=== PATIENT | male | born 1970 | race Caucasian/White ===

== ENCOUNTER 2017-01-17 12:18 | Emergency (ER) | payer BC ==
[~2017-01-17] VITALS: Ht 177.8 cm; Wt 111.7 kg
[2017-01-17 12:24] VITALS: Ht 177.8 cm; Wt 111.7 kg
[2017-01-17] MEDS ORDERED: OPTIRAY 320 IV PRN (13:30)
[2017-01-17 13:58] LABS: BASO % 0.3 %; BASO ABS # 0.02 K/uL (0-0.2); COMPLETE YES; EOS % 2.3 %; IG% 0.3 %; LYMPH % 19.6 %; LYMPH ABS # 1.56 K/uL (1.2-3.4); MEAN CORPUSCULAR HEMOGLOBIN 30.9 pg (25-34); MEAN CORPUSCULAR HGB CONC 33.6 g/dl (32-36); MEAN PLATELET VOLUME 10.5 fL (7.4-10.4); MONO % 11.4 %; NEUT % 66.1 %; PLATELET COUNT 320 K/uL (130-400); RED BLOOD COUNT 4.89 M/uL (4.7-6.1); WHITE BLOOD COUNT 7.95 K/uL (4.8-10.8)
[2017-01-17] MEDS ORDERED: ROSU5TAB PO (14:06)
[2017-01-17] MEDS ORDERED: CITA10TA4 PO (14:06)
[2017-01-17] MEDS ORDERED: LISI-787 PO (14:06)
[2017-01-17 14:25] LABS: BUN/CREATININE RATIO 13.4 (10-20); CALCIUM 8.9 mg/dl (8.5-10.1); CREATININE 0.92 mg/dl (0.60-1.40)
[2017-01-17] MEDS ORDERED: MoRPHine SULFATE 4 MG/ML 1 ML CARP\\VIAL IV STA ×2 (14:26→17:01)
--- NOTE | 2017-01-17 15:23 | DIAGNOSTIC IMAGING REPORT ---
CT PELVIS W/IV CONT ONLY (CT) CT DOSE: 707.50 mGy.cm CLINICAL HISTORY: Rectal pain TECHNIQUE: The patient was scanned in a dynamic helical fashion during intravenous administration of 93 cc Optiray 320. COMPARISON STUDY: None. FINDINGS: There is no pathologic bowel dilatation. There is no pathologic adenopathy. No pelvic masses are visualized. There is a 20 x 12 by 12 mm fluid collection at the posterior aspect of the lower rectum/anus. This could represent a perianal cyst or abscess. Correlation with clinical findings is advocated. No bony abnormalities are visualized. IMPRESSION: 20 x 12 x 12 mm fluid collection at the posterior aspect of the lower rectum/anus. This could represent either a perianal cyst or abscess. Clinical correlation is advocated Electronically signed by: Sunil Mendez M.D. 01/17/2017 3:21 PM Dictated Date/Time: 01/17/2017 3:14 PM
--- NOTE | 2017-01-17 16:13 | EMERGENCY ROOM VISIT NOTE ---
History Report prepared by Julianna: Ashley Mora Under the Supervision of: Dr. Ashish Scherer D.O. First contact with patient: 13:23 Chief Complaint: RECTAL PAIN Stated Complaint: RECTAL PAIN Nursing Triage Summary: Patient sent from [facility] for evaluation of ? ivy-rectal abscess. Patient reports rectal pain and "a felt a lump" last week. Hx of hemorrhoids. History of Present Illness The patient is a 46 year old male who presents to the Emergency Room with complaints of persistent rectal pain that began one week ago. He currently rates his discomfort as a 6/10 in severity. The patient states that he has a history of hemorrhoids. He states that last week he started noticed rectal pain and went to [facility] for further evaluation. The patient states that while there he had an internal and external rectal exam that revealed a possible perirectal abscess. He states that the doctor referred him to the emergency department for further work up. The patient denies any rectal bleeding. He denies any nausea, vomiting, or diarrhea. Source of History: patient Onset: one week ago Position: other (rectal) Symptom Intensity: 6/10 Timing: other (persistent) Associated Symptoms: No diarrhea, No nausea, No vomiting Review of Systems See HPI for pertinent positives & negatives. A total of 10 systems reviewed and were otherwise negative. Past Medical & Surgical Medical Problems: (1) Hemorrhoid (2) High cholesterol (3) Hypertension Family History Heart disease Hypertension Social History Smoking Status: Never Smoker Alcohol Use: none Marital Status: Housing Status: lives with family Occupation Status: employed Current/Historical Medications Scheduled Citalopram Hydrobromide (Citalopram Hydrobromide), 10 MG PO DAILY Lisinopril/Hctz (Zestoretic 20MG/12.5MG), 1 TAB PO DAILY Rosuvastatin Calcium (Crestor), 5 MG PO DAILY Allergies Coded Allergies: No Known Allergies (Unverified , 01/17/17) Physical Exam Vital Signs Date Time Temp Pulse Resp B/P Pulse Ox O2 Delivery O2 Flow Rate FiO2 01/17/17 14:45 63 18 97 Room Air 01/17/17 14:18 55 20 144/90 96 Room Air 01/17/17 12:24 37.6 60 18 139/85 95 Room Air Physical Exam CONSTITUTIONAL/VITAL SIGNS: Reviewed / noted above. GENERAL: Non-toxic in appearance. INTEGUMENTARY: Warm, dry, and [place]. HEAD: Normocephalic. EYES: without scleral icterus or trauma. ENT/OROPHARYNX: clear and moist. LYMPHADENOPATHY/NECK: Is supple without lymphadenopathy or meningismus. RESPIRATORY: Lungs clear and equal. CARDIOVASCULAR: Regular rate and rhythm. GI/ABDOMEN: Soft and nontender. No organomegaly or pulsatile mass. No rebound or guarding. Normal bowel sounds. EXTREMITIES: Warm and well perfused. BACK: No CVA tenderness. RECTAL: Palpable deep mass in the 5-6 o'clock position with associated tenderness. NEUROLOGICAL: Intact without focal deficits. PSYCHIATRIC: normal affect. MUSCULOSKELETAL: Normally developed with good muscle tone. Medical Decision & Procedures ER Provider Diagnostic Interpretation: CT results as stated below per my review and radiologist interpretation: CT PELVIS W/IV CONT ONLY (CT) CT DOSE: 707.50 mGy.cm CLINICAL HISTORY: Rectal pain TECHNIQUE: The patient was scanned in a dynamic helical fashion during intravenous administration of 93 cc Optiray 320. COMPARISON STUDY: None. FINDINGS: There is no pathologic bowel dilatation. There is no pathologic adenopathy. No pelvic masses are visualized. There is a 20 x 12 by 12 mm fluid collection at the posterior aspect of the lower rectum/anus. This could represent a perianal cyst or abscess. Correlation with clinical findings is advocated. No bony abnormalities are visualized. IMPRESSION: 20 x 12 x 12 mm fluid collection at the posterior aspect of the lower rectum/anus. This could represent either a perianal cyst or abscess. Clinical correlation is advocated Electronically signed by: Sunil Mendez M.D. 01/17/2017 3:21 PM Dictated Date/Time: 01/17/2017 3:14 PM Laboratory Results 01/17/17 13:40 Red Blood Count 4.89, Mean Corpuscular Volume 92.0, Mean Corpuscular Hemoglobin 30.9, Mean Corpuscular Hemoglobin Concent 33.6, Mean Platelet Volume 10.5, Neutrophils (%) (Auto) 66.1, Lymphocytes (%) (Auto) 19.6, Monocytes (%) (Auto) 11.4, Eosinophils (%) (Auto) 2.3, Basophils (%) (Auto) 0.3, Neutrophils # (Auto ) 5.26, Lymphocytes # (Auto) 1.56, Monocytes # (Auto) 0.91, Eosinophils # (Auto ) 0.18, Basophils # (Auto) 0.02 01/17/17 13:40 Test 01/17/17 13:40 White Blood Count 7.95 K/uL (4.8-10.8) Red Blood Count 4.89 M/uL (4.7-6.1) Hemoglobin 15.1 g/dL (14.0-18.0) Hematocrit 45.0 % (42-52) Mean Corpuscular Volume 92.0 fL (80-100) Mean Corpuscular Hemoglobin 30.9 pg (25-34) Mean Corpuscular Hemoglobin Concent 33.6 g/dl (32-36) Platelet Count 320 K/uL (130-400) Mean Platelet Volume 10.5 fL (7.4-10.4) Neutrophils (%) (Auto) 66.1 % Lymphocytes (%) (Auto) 19.6 % Monocytes (%) (Auto) 11.4 % Eosinophils (%) (Auto) 2.3 % Basophils (%) (Auto) 0.3 % Neutrophils # (Auto) 5.26 K/uL (1.4-6.5) Lymphocytes # (Auto) 1.56 K/uL (1.2-3.4) Monocytes # (Auto) 0.91 K/uL (0.11-0.59) Eosinophils # (Auto) 0.18 K/uL (0-0.5) Basophils # (Auto) 0.02 K/uL (0-0.2) RDW Standard Deviation 43.5 fL (36.4-46.3) RDW Coefficient of Variation 12.8 % (11.5-14.5) Immature Granulocyte % (Auto) 0.3 % Immature Granulocyte # (Auto) 0.02 K/uL (0.00-0.02) Anion Gap 7.0 mmol/L (3-11) Est Creatinine Clear Calc Drug Dose 122.9 ml/min Estimated GFR () 113.6 Estimated GFR (Non- 98.0 BUN/Creatinine Ratio 13.4 (10-20) Calcium Level 8.9 mg/dl (8.5-10.1) Laboratory results as stated above per my review. Medications Administered Medications (Trade) Dose Ordered Sig/Che Route Start Time Stop Time Status Last Admin Dose Admin Morphine Sulfate (MoRPHine SULFATE INJ) 4 mg NOW STAT IV 3/28/17 14:26 01/17/17 14:27 DC 01/17/17 14:41 4 MG ED Course 1324: Previous medical records were reviewed. The patient was evaluated in room B4B. A complete history and physical examination was performed. 1426: Ordered Morphine Sulfate 4 mg IV. 1558: I discussed the patients case with Dr. Egan, General Surgery. She is going to come evaluate the patient. 1602: I reevaluated the patient and he is resting comfortably. I discussed the exam findings with him and I discussed the treatment plan. He is awaiting Surgery to come see him. Medical Decision Differential diagnosis include, hemorrhoid, rectal abscess, fissure, foreign body, mass. . This is a 46-year-old male who presents to the ED with a chief complaint of rectal pain. The patient was sent from [email or web address]. A CT scan of the pelvis reveals a 20 x 12 x 12 posterior lower rectal/perirectal cyst/abscess. CBC and PRP are normal. I spoke with surgery about this. They will see the patient for evaluation. The patient was treated with IV morphine here and this improved his symptoms somewhat. Consults Time Called: [phone] Consulting Physician: Dr. Egan, General Surgery Returned Call: [phone] I discussed the patients case with Dr. Egan, General Surgery. She is going to come evaluate the patient. Impression Primary Impression: Ivy-rectal abscess Scribe Attestation The scribe's documentation has been prepared under my direction and personally reviewed by me in its entirety. I confirm that the note above accurately reflects all work, treatment, procedures, and medical decision making performed by me. Departure Information Dispostion Being Evaluated By Surgeon Laurie Guadarrama D.O. (PCP) Patient Instructions My [facility]
--- NOTE | 2017-01-17 17:15 | History and Physical: Surg Cnt ---
History & Physical Date Jan 17, 2017. (Vanessa Mccurdy ., ESTRELLITA) Chief Complaint Rectal pain (Vanessa Mccurdy PA-C) History of Present Illness The patient is a 46 year old male who presented to emergency department with complaint of rectal pain for one week. States he started noticing pain a week ago and had some issues with constipation prior. Denies of any fever, chills, nausea, vomiting, rectal bleeding, blood in stools or black/tarry stools. Never had this type of pain before. Never had ivy-rectal or ivy-anal abscess previously. Was seen at urgent care this morning and was advised to present to emergency room for possible perirectal abscess. Has not had anything to eat or drink all day. Pain does not seem to be getting better. States he does have history of hemorrhoids and thought it was due to that but did not notice any rectal bleeding and the pain was different. (Vanessa Mccurdy PA-C) Past Medical/Surgical History Medical Problems: (1) Hemorrhoid (2) High cholesterol (3) Hypertension (Vanessa Mccurdy PA-C) Allergies Coded Allergies: No Known Allergies (Unverified , 01/17/17) Home Medications Scheduled Citalopram Hydrobromide (Citalopram Hydrobromide), 10 MG PO DAILY Lisinopril/Hctz (Zestoretic 20MG/12.5MG), 1 TAB PO DAILY Rosuvastatin Calcium (Crestor), 5 MG PO DAILY Physical Examination Skin: warm/dry, no rash Eyes: normal inspection Head: normocephalic, atraumatic Neck: trachea midline Respiratory/Chest: lungs clear, normal breath sounds, no respiratory distress Cardiovascular: regular rate, rhythm Abdomen / GI: non tender Extremities: normal inspection Neurologic/Psych: alert, oriented x 3 Addiitonal Comments: Rectal: There is some perirectal erythema present at the posterior rectum. Digital rectal examination revealed thickening of the posterior rectum. No blood on examination. Tenderness on examination. No definite fluctuance on exam or induration. (Vanessa Mccurdy PA-C) Diagnosis CT PELVIS W/IV CONT ONLY (CT) CT DOSE: 707.50 mGy.cm CLINICAL HISTORY: Rectal pain TECHNIQUE: The patient was scanned in a dynamic helical fashion during intravenous administration of 93 cc Optiray 320. COMPARISON STUDY: None. FINDINGS: There is no pathologic bowel dilatation. There is no pathologic adenopathy. No pelvic masses are visualized. There is a 20 x 12 by 12 mm fluid collection at the posterior aspect of the lower rectum/anus. This could represent a perianal cyst or abscess. Correlation with clinical findings is advocated. No bony abnormalities are visualized. IMPRESSION: 20 x 12 x 12 mm fluid collection at the posterior aspect of the lower rectum/anus. This could represent either a perianal cyst or abscess. Clinical correlation is advocated Assessment: Ivy-rectal abscess -measuring 20 x 11x 11 mm in size posterior aspect of the lower rectum/anus - afebrile - no leukocytosis (Vanessa Mccurdy ., PA-C) Plan of Treatment Plan for incision and drainage of perirectal abscess. Continue current pain management in the ER. Patient most likely will be discharged following procedure and not require admission I have discussed this patient with Dr. Egan who is in agreement with above stated findings and treatment plan. (Vanessa Mccurdy ., PA-C) Pt seen and examined. Agree with history and physical above. Small 2 cm perirectal abscess left side. Discussed drainage. Risks of bleeding, infection, fistula formation reviewed. Consent signed. Likely home after drainage. (Terra Egan MD)
[2017-01-17 17:21] VITALS: O2SAT 97
[2017-01-17] MEDS ORDERED: CEFAZOLIN IV 2,000 MG/60 ML D5W IV ONE (18:21)
[2017-01-17] MEDS ORDERED: BUPIVACAINE/EPINEPHRINE 0.5% MPF 1:200,000 30 ML VIAL ONE (18:26)
[2017-01-17] MEDS ORDERED: ONDANSETRON INJ 2 MG/ML 2 ML VIAL ONE (18:28)
[2017-01-17] MEDS ORDERED: MIDAZOLAM HCL 1 MG/ML 2ML VIAL ONE (18:28)
[2017-01-17] MEDS ORDERED: PROPOFOL IV EMULSION 10 MG/ML 20 ML VIAL IV ONE (18:28)
[2017-01-17] MEDS ORDERED: FENTANYL CITRATE INJ 50 MCG/1 ML 2 ML VIAL ONE (18:28)
[2017-01-17] MEDS ORDERED: LIDOCAINE HCL 2% 2 ML VIAL (20MG/ML) ONE (18:28)
[2017-01-17] MEDS ORDERED: OXYC-57 PO (18:29)
[2017-01-17] MEDS ORDERED: AMOX875T PO (18:29)
[2017-01-17] MEDS ORDERED: CEFOXITIN IV 2,000 MG in DEXTROSE 5% 50ML 50 ML IV ONE (18:30)
--- NOTE | 2017-01-17 18:33 | Discharge Instructions ---
Discharge Instructions Date of Service Jan 17, 2017. Admission Reason for Admission: Rectal Pain Discharge Discharge Diagnosis / Problem: perirectal abscess Discharge Goals Goal(s): Decrease discomfort Activity Recommendations Activity Limitations: resume your previous activity Lifting Limitations: no more than 10 pounds (for 2 wks) Exercise/Sports Limitations: until after follow-up appointment May Resume Sexual Activity: after two weeks Shower/Bathe: tomorrow Driving or Machine Use: resume 1 day after discharge (if off narcotic pain meds ) . Instructions / Follow-Up Instructions / Follow-Up Leave packing in for 48 hrs if possible. After 48 hrs, sit in a warm bath and pull packing out (this will be uncomfortable). Keep a dry gauze or pad in underwear to collect any drainage. Keep stools soft with stool softeners or miralax. If you are using the narcotic, remember that it will constipate you and it is important to take a laxative and increase water intake. Take the antibiotics for 7 days. F/u in the office in 2 wks. Current Hospital Diet Patient's current hospital diet: Discharge Diet Recommended Diet: Regular Diet Procedures Procedures Performed: incision and drainage of perirectal abscess Pending Studies Studies pending at discharge: no Medical Emergencies . Who to Call and When: Medical Emergencies: If at any time you feel your situation is an emergency, please call 911 immediately. . Non-Emergent Contact Non-Emergency issues call your: Primary Care Provider Contact Number: call [phone] for f/u appt in 2 wks Call Non-Emergent contact if: you have a fever, wound has increased drainage, wound has increased redness, wound has increased pain . "Provider Documentation" section prepared by Terra Egan. VTE Core Measure Inpt VTE Proph given/why not?: Treatment not indicated [place] Drug Monitoring Program Search Results: patient reviewed within database
[2017-01-17] MEDS ORDERED: D5W AND 1/2NSS + 20MEQ KCL 1,000 ML IV SCH (19:04)
--- NOTE | 2017-01-17 19:04 | [facility] Post Operative Brief Note ---
Immediate Operative Summary Operative Date Jan 17, 2017. Pre-Operative Diagnosis Mike rectal abscess - left posterior Post-Operative Diagnosis same Procedure(s) Performed Incision and drainage Perirectal Abscess - left posterior Surgeon Dr Terra Egan Exhibitor Sales Surgeon(s) none Estimated Blood Loss 1ml Findings small amount of pus with 2 cm cavity left posterior Fluids (cc crystalloids) 500 cc Specimens Routine Culture of mike rectal abscess Drains none Anesthesia local and IV sedation Complication(s) None Disposition Recovery Room / PACU
[2017-01-17] MEDS ORDERED: OXYCODONE/ACETAMINOPHEN 5-325 TAB PO PRN ×2 (19:15)
[2017-01-17] MEDS ORDERED: MoRPHine SULFATE 4 MG/ML 1 ML CARP\\VIAL IV PRN (19:15)
[2017-01-17] MEDS ORDERED: ACETAMINOPHEN 325 MG TAB PO PRN (19:15)
[2017-01-17] MEDS ORDERED: METOCLOPRAMIDE HCL INJ 5 MG/ML 2 ML VIAL IV PRN (19:15)
[2017-01-17] MEDS ORDERED: ONDANSETRON INJ 2 MG/ML 2 ML VIAL IV PRN (19:15)
[2017-01-17] MEDS ORDERED: MoRPHine SULFATE 2 MG/ML CARP IV PRN ×2 (19:15)
--- NOTE | 2017-01-17 19:27 | Anesthesiology Progress Note ---
Anesthesia Post Op Note Date & Time Jan 17, 2017 at 19:26 Vital Signs Pain Intensity: 0 Vital Signs Past 12 Hours Date Time Temp Pulse Resp B/P Pulse Ox O2 Delivery O2 Flow Rate FiO2 01/17/17 19:10 66 18 128/78 100 Mask 10 01/17/17 19:01 36.2 78 16 142/81 100 Mask 10 01/17/17 17:21 59 21 137/76 97 Room Air 01/17/17 14:45 63 18 97 Room Air 01/17/17 14:18 55 20 144/90 96 Room Air 01/17/17 12:24 37.6 60 18 139/85 95 Room Air Notes Mental Status: alert / awake / arousable, participated in evaluation Pt Amnestic to Procedure: Yes Nausea / Vomiting: adequately controlled Pain: adequately controlled Airway Patency, RR, SpO2: stable & adequate BP & HR: stable & adequate Hydration State: stable & adequate Anesthetic Complications: no major complications apparent
[2017-01-17 19:30] VITALS: BP_SYST 137; PULSE 100; TEMP 37.2; O2SAT 98
--- NOTE | 2017-01-17 19:56 | OPERATIVE REPORT ---
DATE OF OPERATION: 01/17/2017 PREOPERATIVE DIAGNOSIS: Perirectal abscess, left posterior. POSTOPERATIVE DIAGNOSIS: Same. PROCEDURE: Incision and drainage of perirectal abscess on the left posterior side. SURGEON: Dr. Terra Egan. FRY COOK: None. ANESTHESIA: Local and IV sedation. ESTIMATED BLOOD LOSS: 1 mL. IV FLUIDS: 500 mL. COMPLICATIONS: None. SPECIMENS: Wound culture. INDICATIONS: Mr. Mccabe is a 46-year-old gentleman who presented to the Emergency Room with a left perirectal abscess. He was consented regarding drainage. On imaging, this measured 2 cm. PROCEDURE IN DETAIL: The patient received Mefoxin preoperatively. After the induction of IV sedation, he was positioned in lithotomy and some Trendelenburg. His perirectal area was sterilely prepped and draped. Local anesthesia was injected overlying the left posterior abscess. An incision was made over this and a small amount of pus was evacuated. The cavity was irrigated. A culture had been taken. The wound was then packed with iodoform. A sterile dressing was applied. He was awakened and taken to recovery in stable condition. I attest to the content of the Intraoperative Record and any orders documented therein. Any exceptio ns are noted below.
[2017-01-17 19:57] VITALS: BP 133/91; PULSE 93; TEMP 37; O2SAT 96
[2017-01-17] MEDS ORDERED: PERCOCET HOME PACK PO ONE (20:00)
== END 2017-01-17 20:02 | disposition home or self-care (01) ==
LOC: C.EDB 12:22
DX: K61.1 Rectal abscess (principal); K62.89 Other specified diseases of anus and rectum; I10 Essential (primary) hypertension; E78.00 Pure hypercholesterolemia, unspecified